=== PATIENT | female | born 1995 | race Hispanic/Latino ===

== ENCOUNTER 2016-08-03 20:22 | Outpatient (CLI) | payer MEDICAID ==
[2016-08-03] MEDS ORDERED: LACTATED RINGERS 500 ML IV ONE (20:32)
[2016-08-03 20:42] VITALS: BP 116/67
[2016-08-03 21:50] LABS: Bilirubin,Urine NEG (Negative); Blood,Urine NEG (Negative); Ketones,Urine NEG (Negative); Leukocyte Esterase,Urine NEG (Negative); Mucus,Urine FEW /HPF; Nitrite,Urine NEG (Negative); Protein,Urine <15 mg/dL mg/dL (Negative); Urobilinogen,Urine < 2.0 mg/dL (<2.0)
[2016-08-03 21:51] LABS: Urine Drugs of Abuse Note Disclamer
--- NOTE | 2016-08-03 21:51 | History and Physical Report ---
History of Present Illness Date of examination: 08/03/16 Chief complaint: contractions History of present illness: 20-year-old at 28+1 weeks presents with above complaints and issues, she is a drop-in patient with care with Dr. Ruvalcaba. Patient apparently started care at ~ 10 weeks per oral history but only started Dag[place] 25 weeks. She went to the office last Thursday, claims she was told she was 3 cm and received a second shot of [place] on that date. He was also started to present to the hospital for any signs of contractions Triage today, she appears to be having some contractions. No vaginal bleeding or loss of fluid My exam, is a fingertip and posterior. Note that FFN has been collected. 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 denies: smoking, alcohol abuse, prescription drug abuse, IV drug use - Obstetrical History Expected Date of Delivery: 10/25/16 Actual Gestation: 28 Week(s) 1 Day(s) : 2 Para: 1 Hx # Term Pregnancies: 0 Number of Pregnancies: 1 Number of Living Children: 1 Medications and Allergies Allergies Allergy/AdvReac Type Severity Reaction Status Date / Time No Known Allergies Allergy Verified 08/03/16 20:32 Review of Systems Constitutional: no fever, no chills Cardiovascular: no chest pain, no orthopnea, no syncope, no lightheadedness, no shortness of breath, no dyspnea on exertion Respiratory: no shortness of breath, no dyspnea on exertion, no respiratory infections Gastrointestinal: abdominal pain (Painful contractions), no nausea, no vomiting Genitourinary: no vaginal bleeding, no vaginal discharge, no leakage of fluid - Vital Signs Vital signs: Vital Signs Pulse BP 96 H 116/67 08/03/16 20:39 08/03/16 20:39 Temp Pulse Resp BP Pulse Ox 98.1 F 97 H 24 116/67 99 08/03/16 20:44 08/03/16 21:39 08/03/16 20:44 08/03/16 20:39 08/03/16 21:39 - Physical Exam Abdomen: Positive: normal appearance, soft. Negative: distention, tenderness, guarding, rigidity Genitourinary (Female): Positive: normal external genitalia Uterus: Positive: enlarged (EFW ~ 2000) Adnexa: both: normal Extremities: Positive: normal - Obstetrical FHR: category 1 Cervical Dilatation: 0.5 Results All other labs normal. Assessment and Plan A: 20-year-old at 28+1 weeks with contractions -Cat 1 tracing P: -Obtain FFN -Sonogram with cervical length -UDS -Disposition after results available - Patient Problems (1) 28 weeks gestation of Current Visit: Yes Status: Acute (2) contractions Current Visit: Yes Status: Acute
[2016-08-03] MEDS ORDERED: BRETHINE SUB-Q ONE (22:31)
[2016-08-03] MEDS ORDERED: LACTATED RINGERS 1,000 ML IV ONE (23:02)
--- NOTE | 2016-08-04 07:56 | Ultrasound Report ---
ULTRASOUND OB LIMITED History: well being, evaluate cervical length and presentation. Technique: Transabdominal ultrasound with Doppler interrogation. Gestation: Single Position: Cephalic Placenta: Anterior Placental Grade: 0 Heart Rate: 146 BPM Cervical length: 2.3 cm (Normal > 3 cm)
== END 2016-08-03 23:50 | disposition home or self-care (01) ==
LOC: TRG 20:22
PROVIDERS: ATTEND Obstetrics & Gynecology Gynecology
DX: O47.03 False labor before 37 completed weeks of gestation, third trimester (principal); Z3A.28 28 weeks gestation of pregnancy
CPT/HCPCS: 76815; 80307; 81001; 96360; 96361; 96372; J3105; J7120